=== PATIENT | female | born 1940 | race African-American/Black ===

== ENCOUNTER → 2016-09-23 | Outpatient (CLI) | payer OTHER, BC ==
[~2016-09-23] MED LIST: ACYCLOVIR 800800 MG PO; BENTYL 20 MG TA20 M1 PO; CIPROFLOXACIN500 M1 PO; COZAAR 25 MG TA25 M2 PO; GLUCOPHAGE XR500 MG PO; GLUCOPHAGE500 MG PO; HYDROCHLOROTHIA25 M1 PO; LISINOPRIL20 MG; MULTIVITAMINS PO; NORCO 5-325 TA1 EACH PO; NORVASC 5 MG TAB5 MG; PERCOCET 5-3251 EACH
--- NOTE | ~2016-09-23 | S ---
[facility] [address] [place] [address] SURGICAL PATH RPT PROCEDURE Name: JUANY HERNDON Room #: REG JEAN PAUL Kwan.#: [id number] Admission: 09/23/16 Date of : 36 Discharge: Report #: [id number] Path Case #: [id number] PATHOLOGY REPORT COLLECTION DATE: 09/23/2016 RECEIVED DATE: 09/23/2016 SUBMITTING PHYS: Dr. Emigdio Gage OTHER PHYS: Dr. Mateo Edmondson SPECIMEN(S) RECEIVED: A.Left breast upper outer * * * * * * * * * * * * FINAL DIAGNOSIS: A. Breast, left breast upper outer, needle core biopsy: - INVASIVE CARCINOMA WITH LOBULAR FEATURES INFILTRATING THE SKELETAL MUSCLE. - Background tissue with reparative changes showing dense stromal fibrosis, cholesterol clefts and coarse calcifications. COMMENT: Immunohistochemical stain AE1/AE3 performed on block A2: reactive. [place]view: Dr. Millicent Sunshine. Preliminary findings were discussed with Dr. Mateo Edmondson at 10:00 AM on 09/24/16. History of breast carcinoma is gathered during the discussion. PATHOLOGIST: Rhonda [place] M.D. REPORT ELECTRONICALLY SIGNED BY: Rhonda [place] M.D. DATE/TIME: 09/25/2016 17:41 * * * * * * * * * * * * GROSS PATHOLOGY: Received in formalin labeled "Juany Herndon," and additionally labeled on the requisition as, "left upper outer". Received are multiple needle cores of yellow-alvarez fibrofatty tissue measuring 3.2 x 3.2 x 0.6 cm in aggregate dimensions. Also received is a plastic cassette containing multiple cores of yellow-alvarez fibrofatty tissue measuring 2.8 x 2.6 x 0.4 cm in aggregate dimensions. The tissue in the cassette is transferred to cassette A1, and the remaining tissue is submitted in its entirety in cassette A2 and A3. The cold ischemic time is 5 minutes. The total formalin fixation time is 7 hours and 50 minutes. (CAA; 09/23/2016) [address] [address] SURGICAL PATH RPT PROCEDURE Name: JUANY HERNDON Room #: [facility]#: [id number] Admission: 09/23/16 Date of : 36 Discharge: Report #: [id number] Path Case #: [id number] CLINICAL HISTORY: Left breast calcifications INITIAL CPT CODE(S): A; 26112, 44867, 43206(4) Professional services performed by [facility] [address], [place] [address] Technical services performed by [facility] at [address] [place] [address], [address], [place] [address]. PROCEDURE REPORT (Order Date: 09/28/2015 00:00) INTERPRETATION: Quantitative image analysis was performed on block A2. Please see SCANNED IMAGES under LABORATORY for scanned image of results. COMMENT: PATHOLOGIST: Rhonda [place] M.D. REPORT ELECTRONICALLY SIGNED BY: Rhonda [place] M.D. DATE/TIME: 09/30/2016 13:43 [facility] [address] [place] [address] PHONE: [phone] DIRECTOR: Bhavesh Hernandez M.D. * * * END OF REPORT * * *
== END | disposition home or self-care (01) ==
LOC: RAD 01:13
DX: C50.412 Malignant neoplasm of upper-outer quadrant of left female breast (principal)

== ENCOUNTER → 2018-10-31 | Outpatient (CLI) | payer OTHER, BC | LOC: RAD 10-25 01:08 | DX: Z12.31 Encounter for screening mammogram for malignant neoplasm of breast (principal); Z90.12 Acquired absence of left breast and nipple ==